=== PATIENT | female | born 1955 | race Caucasian/White ===

== ENCOUNTER 2023-11-10 15:40 | Emergency (ER) | payer BC ==
[~2023-11-10] VITALS: Ht 154.9 cm; Wt 68.0 kg
[2023-11-10 15:45] VITALS: BP_SYST 140; PULSE 86; RESP 16; TEMP 97.5; O2SAT 97
[2023-11-10] MEDS ORDERED: DICL50TA9 PO (15:57)
[2023-11-10] MEDS ORDERED: METH-776 PO (15:59)
[2023-11-10] MEDS: KETOROLAC TROMETHAMINE 30 MG VIAL IM ONE (16:13)
[2023-11-10 16:34] VITALS: BP_SYST 132; PULSE 82; RESP 18; TEMP 98; O2SAT 98
== END 2023-11-10 16:30 | disposition home or self-care (01) ==
LOC: SED 15:40
DX: M54.16 Radiculopathy, lumbar region (principal); M79.604 Pain in right leg; R20.0 Anesthesia of skin; J45.909 Unspecified asthma, uncomplicated; I10 Essential (primary) hypertension; Z90.710 Acquired absence of both cervix and uterus; Z98.890 Other specified postprocedural states
CPT/HCPCS: 99283; 96372; J1885